=== PATIENT | male | born 1995 | race Caucasian/White ===

== ENCOUNTER 2017-04-29 10:35 | Day surgery (SDC) | payer OTHER ==
[2017-04-29] VITALS (11 sets, daily range): BP systolic 115–137; BP diastolic 52–84; PULSE 66–91; RESP 10–20; Ht 180.3 cm; Wt 79.0 kg
[~2017-04-29] VITALS: Ht 180.3 cm; Wt 79.0 kg
[2017-04-29] MEDS ORDERED: SOD CHLORIDE 0.9% 1,000 ML IV ONE (12:00)
[2017-04-29] MEDS ORDERED: CEFAZOLIN 2 GM/50 ML (PMX) 50 ML IVPB ONE (12:00)
[2017-04-29] MEDS ORDERED: POLYMYXIN/BACITRACIN 1L IRRIG ONE (13:48)
[2017-04-29] MEDS ORDERED: BUPIVACAINE 0.25% (MPF) 30 ML INJ ONE (13:48)
[2017-04-29] MEDS ORDERED: FENTAnyl 50 MCG/ML VIAL ONE (14:01)
[2017-04-29] MEDS ORDERED: MIDAZOLAM 1 MG/ML 2 ML INJ ONE (14:01)
[2017-04-29] MEDS ORDERED: ONDANSETRON 4 MG INJ IV PRN (14:30)
[2017-04-29] MEDS ORDERED: DIPHENHYDRAMINE 50 MG INJ IV PRN (14:30)
[2017-04-29] MEDS ORDERED: morphine (1 MG/ML) 10ML SYRINGE IV PRN (14:30)
[2017-04-29] MEDS ORDERED: MEPERIDINE 25 MG INJ IV PRN (14:30)
[2017-04-29] MEDS ORDERED: FENTAnyl 50 MCG/ML VIAL IV PRN (14:30)
[2017-04-29] MEDS ORDERED: morphine 10 MG INJ ONE (14:33)
[2017-04-29] MEDS ORDERED: LIDOCAINE 2% (SDV) 5 ML INJ ONE (15:05)
[2017-04-29] MEDS ORDERED: GLYCOPYRROLATE 0.4 MG INJ ONE (15:05)
[2017-04-29] MEDS ORDERED: ROCURONIUM 50 MG INJ ONE (15:05)
[2017-04-29] MEDS ORDERED: NEOSTIGMINE 3 MG/3 ML SYRINGE ONE (15:05)
[2017-04-29] MEDS ORDERED: PROPOFOL 20 ML ONE (15:05)
[2017-04-29] MEDS ORDERED: CEFAZOLIN 1 GM INJ ONE (15:05)
[2017-04-29] MEDS ORDERED: ONDANSETRON 4 MG INJ ONE (15:06)
--- NOTE | 2017-04-29 15:15 | OPR ---
Date/Time of Note Date/Time of Note DATE: 04/29/17 TIME: 15:10 Operative Report Procedure Date: Apr 29, 2017 Preoperative Diagnosis left inguinal hernia Postoperative Diagnosis left inguinal hernia Operation Performed 1. open left inguinal hernia repair with medium size ultrapro hernia system mesh 2. localized adjacent tissue with transfer with the use of skin flaps 12 sq cm defect 3. therapeutic injection of subcutaneous marcaine cpt code [id number] Surgeon: Mateo RETANA Indications This is a 22-year-old male with a left inguinal hernia. He requires surgical repair. Risks alternatives benefits and percent were discussed with the patient. Patient expresses understanding consents to the operation. Procedure Description Patient is taken to the OR and prepped and draped in usual sterile fashion surgical timeout was performed IV antibiotics given. Left inguinal oblique incision is made with a 10 blade. Dissection cautery was carried down through the Pretty's fascia and to the external oblique fascia. The external fascia is opened with a 15 blade. This incision is extended medially inferiorly lateral superiorly with Metzenbaum scissors. Cord structures are identified dissected out in encircled with a Thomson drain. Indirect hernia sac is identified and reduced. The disc portion of the ultra pro system mesh was used to bolster the indirect hernia defect. This disc is secured in place with a running 0 Prolene from the pubic tubercle along the shelving edge of the inguinal ligament and superiorly to the internal oblique with interrupted 3-0 Vicryl. Onlay mesh is secured in a similar fashion with a running 0 Prolene from the pubic tubercle along the shelving of the inguinal ligament. Onlay mesh is secured to the internal oblique with interrupted 3-0 Vicryl. Externally fascia is closed with a running 3-0 Vicryl. Due to tissue defect localized adjacent tissue transfer with these of skin flaps superior and inferior flap advancement was performed closure was performed in a multilayer fashion. Pretty's was closed with interrupted 3-0 Vicryl. Skin is closed using skin davis. Local anesthesia is injected into the incision site. Mateo RETANA Apr 29, 2017 15:15
[2017-04-29] MEDS ORDERED: HYDROCODONE/APAP (5/325) TAB PO ONE (15:30)
== END 2017-04-29 16:54 | disposition home or self-care (01) ==
LOC: SDS 10:35
PROVIDERS: ATTEND Surgery
DX: K40.30 Unilateral inguinal hernia, with obstruction, without gangrene, not specified as recurrent (principal)
CPT/HCPCS: 14001; 49505; C1781; J0690; J2250; J2270; J2405; J2710; J3010; Z7512; Z7610